=== PATIENT | female | born 1985 | race Two or more races ===

== ENCOUNTER 2018-12-16 18:42 | Emergency (ER) | payer MEDICAID ==
[~2018-12-16] VITALS: Ht 157.5 cm; Wt 47.2 kg
--- NOTE | 2018-12-16 18:55 | NUR ---
ED Nurse Note: PT WALKED IN TO ER TODAY FROM HOME. AOX4. PT C/O VAGINAL SPOTTING X MONDAY. PT STATES SHE WAS 5 WEEKS , CONFIRMED BY [employer] SPECIALIST. PT STATES SHE WENT TO [facility] ER ON MONDAY DUE TO VAGINAL SPOTTING AND WAS TOLD SHE HAD A THREATED MISCARRIAGE. PT STATES SHE WENT TO SEE HER INTER[employer] MARKET[employer] SPECIALIST ON MONDAY AND TOLD THERE WAS NO HEART RATE. PT WAS DC'D WITH INSTRUCTIONS TO REPORT HEAVY BLEEDING. PT PRESENTS TO ER TODAY DUE TO WEAKNESS AND DIZZINESS X AFTER SEEING HER [employer] MARKET[employer] SPECIALIST X 4 DAYS AGO. PT C/O HEMATURIA WITH SMALL CLOTS X 4 DAYS AGO. PT ALSO C/O LOWER ABDOMINAL PAIN, 4/10 X 4 DAYS AGO. VSS.
[2018-12-16] MEDS ORDERED: MULTIVITAMINS1 EAC2 ORAL (19:12)
--- NOTE | 2018-12-16 19:23 | NUR ---
ED Nurse Note: REPORT GIVEN TO ISAAC RANGEL.
--- NOTE | 2018-12-16 19:26 | NUR ---
Received a call from [email or web address] [facility] will be here in an hour.
[2018-12-16 19:32] LABS: APPEARANCE,URINE CLEAR; BILIRUBIN, URINE NEGATIVE (NEGATIVE); COLOR,URINE RED; GLUCOSE, URINE (UA) NEGATIVE (NEGATIVE); KETONES,URINE NEGATIVE (NEGATIVE); LEUKOCYTE ESTERASE ,URINE 1+ (NEGATIVE); NITRITE,URINE NEGATIVE (NEGATIVE); PH,URINE 7 (4.5-8.0); PROTEIN,URINE 3+ (NEGATIVE); UROBILINOGEN,URINE NORMAL MG/DL (0.0-1.0)
[2018-12-16 19:34] LABS: BASOPHILS % (AUTO) 1.5 % (0.0-2.0); HEMATOCRIT 39.2 % (37.0-47.0); HEMOGLOBIN 13.7 G/DL (12.0-16.0); LYMPHOCYTES % (AUTO) 21.8 % (20.0-45.0); MEAN CORPUSCULAR VOLUME 87 FL (80-99); NEUTROPHILS % (AUTO) 68.7 % (45.0-75.0); PLATELET COUNT 339 K/UL (150-450); RED BLOOD COUNT 4.51 M/UL (4.20-5.40); RED CELL DISTRIBUTION WIDTH 10.2 % (11.6-14.8); WHITE BLOOD COUNT 11.2 K/UL (4.8-10.8)
[2018-12-16 19:43] LABS: ANION GAP 9 mmol/L (5-15); BLOOD UREA NITROGEN 10 mg/dL (7-18); CALCIUM 9.3 MG/DL (8.5-10.1); CARBON DIOXIDE 29 MMOL/L (21-32); CHLORIDE 101 MMOL/L (98-107); CREATININE 0.9 MG/DL (0.55-1.30); POTASSIUM 3.3 MMOL/L (3.5-5.1); SODIUM 139 MMOL/L (136-145)
[2018-12-16 19:45] LABS: ALANINE AMINOTRANSFERASE 64 U/L (12-78); ALBUMIN 3.3 G/DL (3.4-5.0); ALBUMIN/GLOBULIN RATIO 0.6 (1.0-2.7); ALKALINE PHOSPHATASE 81 U/L (46-116); ASPARTATE AMINO TRANSFERASE 33 U/L (15-37); BILIRUBIN,TOTAL 0.2 MG/DL (0.2-1.0)
--- NOTE | 2018-12-16 20:59 | NUR ---
ER Nurse Note: Pt in US. Pt n/v; ERMD aware and received verbal orders for IV zofran. Awaiting pt and US results.
--- NOTE | 2018-12-16 21:59 | Emergency Room Report ---
History of Present Illness General Chief Complaint: Complications Source: Patient Present Illness HPI 33-year-old female presents to ED with vaginal bleeding and weakness. States that she is about 5 weeks . States that about 5 days ago she had an ultrasound done at another hospital which showed a yolk sac. States she's been having persistent bleeding since. Pain is cramping, 5 out of 10, nonradiating. Denies fevers or chills. Denies chest pain or shortness of breath. No other aggravating relieving factors. Denies any other associated symptoms Allergies: Coded Allergies: No Known Allergies (Unverified , 12/16/18) Patient History Past Medical History: none Past Surgical History: none Pertinent Family History: none Social History: Denies: smoking, alcohol use, drug use Last Menstrual Period: 10/23/18 Now: Yes - 5 weeks Immunizations: UTD Reviewed Nursing Documentation: PMH: Agreed; PSxH: Agreed Nursing Documentation-PMH Past Medical History: No Stated History Review of Systems All Other Systems: negative except mentioned in HPI Physical Exam Vital Signs Date Time Temp Pulse Resp B/P (MAP) Pulse Ox O2 Delivery O2 Flow Rate FiO2 12/16/18 18:58 98.1 104 20 130/69 99 Room Air Sp02 EP Interpretation: reviewed, normal General Appearance: no apparent distress, alert, GCS 15, non-toxic Head: normocephalic, atraumatic Eyes: bilateral eye normal inspection, bilateral eye PERRL ENT: hearing grossly normal, normal pharynx, no angioedema, normal voice Neck: full range of motion, supple/symm/no masses Respiratory: chest non-tender, lungs clear, normal breath sounds, speaking full sentences Cardiovascular #1: regular rate, rhythm, no edema Cardiovascular #2: 2+ carotid (R), 2+ carotid (L), 2+ radial (R), 2+ radial (L) , 2+ dorsalis pedis (R), 2+ dorsalis pedis (L) Gastrointestinal: normal bowel sounds, non tender, soft, non-distended, no guarding, no rebound Rectal: deferred Genitourinary: normal inspection, no CVA tenderness Musculoskeletal: back normal, gait/station normal, normal range of motion, non- tender Neurologic: alert, oriented x3, responsive, motor strength/tone normal, sensory intact, speech normal Psychiatric: judgement/insight normal, memory normal, mood/affect normal, no suicidal/homicidal ideation Reflexes: 3+ bicep (R), 3+ bicep (L), 3+ tricep (R), 3+ tricep (L), 3+ knee (R) , 3+ knee (L) Skin: normal color, no rash, warm/dry, well hydrated Lymphatic: no adenopathy Medical Decision Making Diagnostic Impression: Primary Impression: Miscarriage ER Course Hospital Course 33-year-old F presents to ED complaining of vaginal bleeding. approxiamtely 5 weeks pregant Differential diagnoses include: gastrits, gastroenterits, ectopic , ovarian torsion/cyst, UTI Clinical course Patient placed on stretcher in ED. After initial history and physical I ordered labs, IV fluids and pelvic ultrasound. Labs-no leukocytosis, hb/hct stable, electrolytes okay, beta hCG 760, UA unremarkable OB ultrasound- no IUP detected Discussed findings with patient. Consistent with miscarriage. Patient needs to follow-up with her [employer] for serial ultrasound to ensure no retained products of conception Safe for discharge and close outpatient follow-up Diagnosis - miscarriage Stable and discharged to home. Followup with PMD/[employer]. Return to ED if symptoms recur or worsen Labs Test 12/16/18 19:08 White Blood Count 11.2 K/UL (4.8-10.8) Red Blood Count 4.51 M/UL (4.20-5.40) Hemoglobin 13.7 G/DL (12.0-16.0) Hematocrit 39.2 % (37.0-47.0) Mean Corpuscular Volume 87 FL (80-99) Mean Corpuscular Hemoglobin 30.4 PG (27.0-31.0) Mean Corpuscular Hemoglobin Concent 35.0 G/DL (32.0-36.0) Red Cell Distribution Width 10.2 % (11.6-14.8) Platelet Count 339 K/UL (150-450) Mean Platelet Volume 5.3 FL (6.5-10.1) Neutrophils (%) (Auto) 68.7 % (45.0-75.0) Lymphocytes (%) (Auto) 21.8 % (20.0-45.0) Monocytes (%) (Auto) 6.0 % (1.0-10.0) Eosinophils (%) (Auto) 2.0 % (0.0-3.0) Basophils (%) (Auto) 1.5 % (0.0-2.0) Prothrombin Time 10.4 SEC (9.30-11.50) Prothromb Time International Ratio 1.0 (0.9-1.1) Activated Partial Thromboplast Time 32 SEC (23-33) Urine Color Red Urine Appearance Clear Urine pH 7 (4.5-8.0) Urine Specific [place] 1.005 (1.005-1.035) Urine Protein 3+ (NEGATIVE) Urine Glucose (UA) Negative (NEGATIVE) Urine Ketones Negative (NEGATIVE) Urine Blood 5+ (NEGATIVE) Urine Nitrite Negative (NEGATIVE) Urine Bilirubin Negative (NEGATIVE) Urine Urobilinogen Normal MG/DL (0.0-1.0) Urine Leukocyte Esterase 1+ (NEGATIVE) Urine RBC 10-15 /HPF (0 - 2) Urine WBC 2-4 /HPF (0 - 2) Urine Squamous Epithelial Cells Few /LPF (NONE/OCC) Urine Bacteria Few /HPF (NONE) Urine HCG, Qualitative Positive (NEGATIVE) Sodium Level 139 MMOL/L (136-145) Potassium Level 3.3 MMOL/L (3.5-5.1) Chloride Level 101 MMOL/L (98-107) Carbon Dioxide Level 29 MMOL/L (21-32) Anion Gap 9 mmol/L (5-15) Blood Urea Nitrogen 10 mg/dL (7-18) Creatinine 0.9 MG/DL (0.55-1.30) Estimat Glomerular Filtration Rate > 60 mL/min (>60) Glucose Level 118 MG/DL (74-106) Calcium Level 9.3 MG/DL (8.5-10.1) Total Bilirubin 0.2 MG/DL (0.2-1.0) Aspartate Amino Transf (AST/SGOT) 33 U/L (15-37) Alanine Aminotransferase (ALT/SGPT) 64 U/L (12-78) Alkaline Phosphatase 81 U/L (46-116) Total Protein 8.5 G/DL (6.4-8.2) Albumin 3.3 G/DL (3.4-5.0) Globulin 5.2 g/dL Albumin/Globulin Ratio 0.6 (1.0-2.7) Lipase 192 U/L (73-393) Human Chorionic Gonadotropin, Quant 706 mIU/mL (1-6) CT/MRI/US Diagnostic Results CT/MRI/US Diagnostic Results : Imaging Test Ordered: OB US Impression Based on an LMP of October 23, 2018, gestational age by dates is 7 weeks and 5 days with an estimated delivery date of July 30, 2019. However, no intrauterine gestational sac is identified. The endometrial stripe measures 9 mm in diameter. The right ovary measures 3.1 x 1.3 x 1.7 cm and demonstrates normal flow color Doppler imaging. The left ovary measures 2.3 x 1.7 x 2.0 cm and also demonstrates normal flow on color Doppler imaging. No adnexal mass or significant pelvic free fluid. Last Vital Signs Date Time Temp Pulse Resp B/P (MAP) Pulse Ox O2 Delivery O2 Flow Rate FiO2 12/16/18 18:58 98.1 104 20 130/69 99 Room Air Status: improved Disposition: HOME, SELF-CARE Condition: Stable Referrals: [facility] Rosana Ariza [facility] Patient Instructions: Miscarriage, [id number] Carlos Chakraborty MD Dec 16, 2018 21:59
[2018-12-16 22:35] VITALS: BP 128/72
--- NOTE | 2018-12-16 23:12 | NUR ---
ER Nurse Note: Pt seen, treated, medically cleared for discharge by ERMD. Discharge instructions and prescriptions given with repeat verbalizaion by pt. Instructed pt to follow up with primary care physcian within one week. Pt a&ox4, VSS, no signs of distress. All belongings taken, ID band removed, IV removed; site clean and bandaged, left with stable gait, left via own transporation.
--- NOTE | 2018-12-17 09:57 | Diagnostic Imaging Report ---
Indication: patient, vaginal bleeding x4 days Technique: Transabdominal and transvaginal images. Doppler interrogation of the bilateral ovaries Comparison: none Findings: Uterus measures 8.6 cm length by 4.1 cm AP. Endometrium measures 7 mm thick. No intrauterine demonstrated. No myometrial abnormality. Right ovary measures 3.2 cm length. Left ovary measures 2.3 cm length. No adnexal mass. Normal ovarian blood flow demonstrated. No free cul-de-sac fluid. Impression: No intrauterine demonstrated. Differential considerations include very early , spontaneous , ectopic . Correlate with clinical findings and serial beta hCGs, consider follow-up sonography as indicated This agrees with the preliminary interpretation provided [facility].
== END 2018-12-16 22:35 | disposition home or self-care (01) ==
LOC: EMR 19:04
DX: O03.9 Complete or unspecified spontaneous abortion without complication (principal)
CPT/HCPCS: 36415; 76801; 76830; 80053; 81003; 81025; 83690; 84702; 85025; 85610; 85730; 86850; 86900; 86901; 96374; 99284; J2405; J7040